=== PATIENT | male | born 1945 | race Caucasian/White ===

== ENCOUNTER 2016-04-27 10:47 | Inpatient (IN) | payer OTHER, BC ==
[~2016-04-27] VITALS: Ht 188 cm; Wt 92.9 kg
[2016-04-27] VITALS (7 sets, daily range): BP systolic 97–123; BP diastolic 68–85
[~2016-04-27 10:47] MED LIST: ALEVE220 MG PO; BENAZEPRIL HCL10 MG PO; BENAZEPRIL HCL40 MG PO; BUMETANIDE1 MG PO; BUMEX1 MG PO; CLONAZEPAM0.5 MG PO; COLACE100 MG PO; COMPAZINE10 MG PO; DAILY VALUE1 EACH PO; DIAZEPAM5 MG PO; DILAUDID2 MG PO; DULCOLAX5 MG PO; DURAGESIC25 MCG TD; DURAGESIC50 MCG TD; ELIQUIS5 MG PO; FLAX SEED OIL1 EACH PO; FLAXSEED OIL1000 M4 PO; LO-DOSE ASPIRIN81 M1 PO; LORAZEPAM0.5 MG PO; LOVENOX100 MG/1 M SC; METFORMIN HCL500 M1 PO; METOPROLOL SUCC50 MG PO; NORCO 5/3251 TABLET PO; OXAYDO5 MG PO; OXYCODONE HCL10 MG PO; PROCHLORPERAZIN10 MG PO; ROXICODONE5 MG PO; XARELTO15 MG PO; ZANAFLEX2 MG PO; ZANTAC150 MG PO; [UNRECOGNIZED DRUG - OTHER] PO
[2016-04-27 12:02] LABS: HEMATOCRIT 38.7 % (38.0-50.0); MCH 26.4 PG (29.0-34.0); MCHC 31.8 G/DL (30.0-36.0); MEAN PLAT.VOLUME 9.4 uM^3 (9.0-12.4); PLATELET COUNT 685 K/uL (156-360); RBC DIS.WIDTH-CV 16.6 % (11.8-14.6); RBC DIS.WIDTH-SD 49.3 % (39-53); RED BLOOD COUNT 4.66 M/uL (4.00-5.50); WHITE BLOOD COUNT 25.3 K/uL (4.1-10.2)
[2016-04-27 12:20] LABS: TROP-I INTERPRETATION NEGATIVE
[2016-04-27] MEDS ORDERED: DEXAMETHASONE4 MG PO (12:53)
[2016-04-27] MEDS ORDERED: KADIAN30 MG PO (12:53)
[2016-04-27 13:06] LABS: CHLORIDE 88 mEq/L (99-109); SODIUM 126 mEq/L (136-147)
[2016-04-27 13:09] LABS: ANION GAP 23 MEQ/L (2-14)
[2016-04-27 13:12] LABS: GFR ESTIMATE (CALCULATED) 53 mL/min/
[2016-04-27 13:13] LABS: UREA NITROGEN (BUN) 32 mg/dL (9-23)
[2016-04-27 13:14] LABS: GLUCOSE 792 mg/dL (70-99)
[2016-04-27 13:42] LABS: CARBON DIOXIDE (BICARBONATE) 22.5 MEQ/L (20-31)
[2016-04-27 14:14] LABS: ADD MIUA? NO; BILIRUBIN NEGATIVE; BLOOD NEGATIVE; COLOR YELLOW ((YELLOW)); GLUCOSE (STRIP) >=1000; KETONES 40; LEUKOCYTES NEGATIVE; NITRITE NEGATIVE; PH, URINE 5.5 (5-8); PROTEIN (STRIP) NEGATIVE; SPECIFIC GRAVITY 1.034 (1.000-1.030); UCUL ADDED? NO; UROBILINOGEN 0.2 MG/DL (0.2-1.0)
[2016-04-27] MEDS ORDERED: ZANAFLEX2 MG PO (15:18)
[2016-04-27] MEDS ORDERED: ZOFRAN4 MG PO (15:19)
[2016-04-27 16:14] LABS: Estimated Average Glucose 280 mg/dL (70-123); HEMOGLOBIN A1c (GLYCOHEMOGLOB) 11.4 % HGB (Below 5.7)
[2016-04-27 18:23] LABS: METH RESISTANT S AUREUS PCR NEGATIVE (NEGATIVE)
[2016-04-27 18:24] LABS: PROBE CHECK PASS; SPECIMEN PROCESSING CONTROL PASS
[2016-04-27 20:09] LABS: POINT-OF-CARE METER ID UU13113748
[2016-04-27 20:14] LABS: ANION GAP 11 MEQ/L (2-14); CHLORIDE 95 MEQ/L (99-109); MAGNESIUM 1.8 mg/dl (1.3-2.7); SAMPLE HEMOLYSIS CHECK 0; SAMPLE ICTERIC CHECK 0; SAMPLE LIPEMIA CHECK 0; SODIUM 130 MEQ/L (136-147)
[2016-04-27 20:22] LABS: UREA NITROGEN (BUN) 27 mg/dL (9-23)
[2016-04-27 20:24] LABS: GFR ESTIMATE (CALCULATED) > 59 mL/min/; POTASSIUM 3.7 MEQ/L (3.7-5.4)
[2016-04-27 20:32] LABS: GLUCOSE 393 mg/dL (70-99)
[2016-04-27 21:19] LABS: POINT-OF-CARE METER ID UU13113748
[2016-04-27 22:38] LABS: POINT-OF-CARE METER ID UU13113748
[2016-04-27 23:49] LABS: POINT-OF-CARE METER ID UU13113748
[2016-04-28] VITALS (16 sets, daily range): BP systolic 98–127; BP diastolic 60–77
[2016-04-28 00:44] LABS: POINT-OF-CARE METER ID UU13113748
[2016-04-28 00:52] LABS: SODIUM 132 mEq/L (136-147)
[2016-04-28 00:53] LABS: MAGNESIUM 1.6 mg/dL (1.3-2.7)
[2016-04-28 00:54] LABS: GLUCOSE 204 mg/dL (70-99)
[2016-04-28 00:56] LABS: ANION GAP 9 MEQ/L (2-14); CHLORIDE 101 mEq/L (99-109); POTASSIUM 4.5 mEq/L (3.7-5.4)
[2016-04-28 00:58] LABS: GFR ESTIMATE (CALCULATED) > 59 mL/min/
[2016-04-28 00:59] LABS: UREA NITROGEN (BUN) 23 mg/dL (9-23)
[2016-04-28 01:56] LABS: POINT-OF-CARE METER ID UU14174217
[2016-04-28 04:26] LABS: CHLORIDE 102 mEq/L (99-109); POTASSIUM 4.2 mEq/L (3.7-5.4); SODIUM 134 mEq/L (136-147)
[2016-04-28 04:27] LABS: MAGNESIUM 1.7 mg/dL (1.3-2.7)
[2016-04-28 04:28] LABS: GLUCOSE 131 mg/dL (70-99)
[2016-04-28 04:30] LABS: ANION GAP 8 MEQ/L (2-14)
[2016-04-28 04:32] LABS: GFR ESTIMATE (CALCULATED) > 59 mL/min/
[2016-04-28 04:33] LABS: UREA NITROGEN (BUN) 23 mg/dL (9-23)
[2016-04-28 08:20] LABS: POINT-OF-CARE METER ID UU13113748
[2016-04-29] VITALS (12 sets, daily range): BP systolic 96–134; BP diastolic 55–82
[2016-04-29 08:33] LABS: MCH 26.1 PG (29.0-34.0); MCHC 31.7 G/DL (30.0-36.0); MCV 82.2 FL (86-99); RBC DIS.WIDTH-CV 16.9 % (11.8-14.6); RBC DIS.WIDTH-SD 50.5 % (39-53); RED BLOOD COUNT 4.26 M/uL (4.00-5.50); WHITE BLOOD COUNT 20.3 K/uL (4.1-10.2)
[2016-04-29 08:44] LABS: EOSINOPHIL (%) 2.3 % (0-5); EOSINOPHIL COUNT 0.5 K/uL (0-0.3); IMMATURE GRANULOCYTE (%) 0.7 % (0.0-0.7); IMMATURE GRANULOCYTE COUNT 0.1 K/uL; LYMPHOCYTE COUNT 1.5 K/uL (1.0-2.8); MONOCYTE (%) 8.5 % (3-12); MONOCYTE COUNT 1.7 K/uL (0-0.8); NEUTROPHIL COUNT 16.5 K/uL (1.8-6.4)
[2016-04-29 08:57] LABS: ANION GAP 7 MEQ/L (2-14); CHLORIDE 97 MEQ/L (99-109); GFR ESTIMATE (CALCULATED) > 59 mL/min/; MAGNESIUM 1.7 mg/dl (1.3-2.7); POTASSIUM 4.1 MEQ/L (3.7-5.4); SAMPLE HEMOLYSIS CHECK 0; SAMPLE ICTERIC CHECK 0; SAMPLE LIPEMIA CHECK 0; SODIUM 131 MEQ/L (136-147); UREA NITROGEN (BUN) 27 mg/dL (9-23)
[2016-04-29 08:58] LABS: GLUCOSE 282 mg/dL (70-99)
[2016-04-29 09:16] LABS: HEMATOLOGY COMMENT 1 SMEAR COMPATIBLE; USER ID BLP
[2016-04-29 11:58] LABS: POINT-OF-CARE METER ID UU13113803
[2016-04-29 22:27] LABS: POINT-OF-CARE METER ID UU14174217
[2016-04-30] VITALS (8 sets, daily range): BP systolic 107–119; BP diastolic 66–80
[2016-04-30 12:59] LABS: POINT-OF-CARE METER ID UU13113731
[2016-04-30] MEDS ORDERED: METFORMIN HCL1000 MG PO (13:14)
[2016-04-30] MEDS ORDERED: NOVOLOG PE100 UNITS/ SC ×3 (13:14→17:34)
[2016-04-30] MEDS ORDERED: LEVEMIR100 UNIT/2 SC ×2 (13:17→13:18)
[2016-04-30 15:20] LABS: POINT-OF-CARE METER ID UU14174217; POINT-OF-CARE USER ID ENVSME70
[2016-04-30 16:04] LABS: POINT-OF-CARE METER ID UU14174217
[2016-04-30 17:18] LABS: POINT-OF-CARE METER ID UU13113748
== END 2016-04-30 18:35 | disposition home or self-care (01) | DRG 638 ==
LOC: EME 10:47 → EDOF 15:04 → 4WEST 15:04
PROVIDERS: Emergency Medicine; Hospitalist; Internal Medicine; Internal Medicine Critical Care Medicine
DX: E09.10 Drug or chemical induced diabetes mellitus with ketoacidosis without coma (principal); N17.9 Acute kidney failure, unspecified; C34.90 Malignant neoplasm of unspecified part of unspecified bronchus or lung; C79.51 Secondary malignant neoplasm of bone; I82.402 Acute embolism and thrombosis of unspecified deep veins of left lower extremity; I10 Essential (primary) hypertension; G89.29 Other chronic pain; T38.0X5A Adverse effect of glucocorticoids and synthetic analogues, initial encounter
CPT/HCPCS: 71020; 77336; 77412; 80048; 80048 91; 81003; 82010 90; 82803; 82948; 83036; 83735; 84100; 84484; 84999; 85025; 85027; 87641; 93005; 99281; 99285; J1170; J1815; J2765; J3480; J7030; J7050; J7120; J8540; S0028

== ENCOUNTER 2016-06-16 12:13 | Emergency (ER) | payer OTHER, BC ==
[~2016-06-16] VITALS: Ht 188 cm; Wt 102.4 kg
[~2016-06-16 12:13] MED LIST changes: +DEXAMETHASONE4 MG PO; +KADIAN30 MG PO; +LEVEMIR100 UNIT/2 SC; +METFORMIN HCL1000 MG PO; +NOVOLOG PE100 UNITS/ SC; +ZOFRAN4 MG PO
[2016-06-16 13:29] LABS: MEAN PLAT.VOLUME 8.1 uM^3 (9.0-12.4); PLATELET COUNT 625 K/uL (156-360)
[2016-06-16 13:43] LABS: CHLORIDE 103 mEq/L (99-109); POTASSIUM 4.2 mEq/L (3.7-5.4); SODIUM 136 mEq/L (136-147)
[2016-06-16 13:45] LABS: GLUCOSE 130 mg/dL (70-99)
[2016-06-16 13:46] LABS: ANION GAP 11 MEQ/L (2-14)
[2016-06-16 13:47] LABS: TOTAL BILIRUBIN 0.3 mg/dL (0.0-1.0)
[2016-06-16 13:48] LABS: ALKALINE PHOSPHATASE 83 IU/L (3-129)
[2016-06-16 13:49] LABS: GFR ESTIMATE (CALCULATED) > 59 mL/min/
[2016-06-16 13:50] LABS: UREA NITROGEN (BUN) 19 mg/dL (9-23)
[2016-06-16 13:50] LABS: TROP-I INTERPRETATION NEGATIVE; TROPONIN-I < 0.01 ng/mL (0.0-0.30)
[2016-06-16 13:52] LABS: LIPASE 14 U/L (1.0-51.0)
[2016-06-16 13:54] LABS: HEMATOCRIT 23.7 % (38.0-50.0); MCH 25.6 PG (29.0-34.0); MCHC 30.8 G/DL (30.0-36.0); MCV 83.2 FL (86-99); RBC DIS.WIDTH-CV 17.7 % (11.8-14.6); RBC DIS.WIDTH-SD 51.9 % (39-53); RED BLOOD COUNT 2.85 M/uL (4.00-5.50)
[2016-06-16 13:58] LABS: WHITE BLOOD COUNT 31.5 K/uL (4.1-10.2)
[2016-06-16] MEDS ORDERED: MORPHINE SULFAT15 M1 PO (14:14)
[2016-06-16] MEDS ORDERED: AMARYL2 MG PO (14:15)
[2016-06-16] MEDS ORDERED: HYOSCYAMINE0.125 M2 PO (14:16)
[2016-06-16] MEDS ORDERED: OXYCODONE HCL10 MG PO (14:17)
[2016-06-16] MEDS ORDERED: MAG-AL LIQUID30 ML PO (14:18)
[2016-06-16 14:48] LABS: ABS NEUTROPHIL COUNT 24.29; ANISOCYTOSIS 1+; BAND NEUTROPHILS 27.5 % (0-8.0); EOSINOPHIL ABS CT 4.73; HYPOCHROMASIA 1+; OVALOCYTES OCC; PLAT.SUFFICIENCY INCREASED; POLYCHROMASIA OCC; SEG.NEUTROPHILS 49.5 % (46.0-76.0); USER ID MCB
[2016-06-16 14:51] LABS: DELETE MACHINE DIFF? YES
[2016-06-16 18:18] VITALS: BP 84/65
[2016-06-16] MEDS ORDERED: CARDIZEM CD120 M1 PO (18:22)
== END 2016-06-16 19:00 | disposition home or self-care (01) ==
LOC: EME 12:13
PROVIDERS: Emergency Medicine
DX: I48.91 Unspecified atrial fibrillation (principal); I95.9 Hypotension, unspecified; R10.9 Unspecified abdominal pain; C34.90 Malignant neoplasm of unspecified part of unspecified bronchus or lung; D73.9 Disease of spleen, unspecified; E27.8 Other specified disorders of adrenal gland; D72.829 Elevated white blood cell count, unspecified; D64.9 Anemia, unspecified; E11.9 Type 2 diabetes mellitus without complications; I10 Essential (primary) hypertension; Z85.038 Personal history of other malignant neoplasm of large intestine; Z87.891 Personal history of nicotine dependence
CPT/HCPCS: 71010; 71275; 74177; 80053; 81003; 83605; 83690; 84484; 85025; 93005; 99281; 99285; J1200; J2270; J7030

== ENCOUNTER 2016-06-21 19:26 | Emergency (ER) | payer OTHER, BC ==
[~2016-06-21] VITALS: Ht 188 cm; Wt 115.0 kg
[~2016-06-21 19:26] MED LIST changes: +AMARYL2 MG PO; +CARDIZEM CD120 M1 PO; +HYOSCYAMINE0.125 M2 PO; +MAG-AL LIQUID30 ML PO; +MORPHINE SULFAT15 M1 PO
[2016-06-21 20:01] LABS: BASOPHIL COUNT 0.1 K/uL (0-0.1); EOSINOPHIL (%) 8.9 % (0-5); EOSINOPHIL COUNT 2.8 K/uL (0-0.3); IMMATURE GRANULOCYTE (%) 0.9 % (0.0-0.7); IMMATURE GRANULOCYTE COUNT 0.3 K/uL; LYMPHOCYTE COUNT 1.1 K/uL (1.0-2.8); MEAN PLAT.VOLUME 7.9 uM^3 (9.0-12.4); MONOCYTE (%) 7.6 % (3-12); MONOCYTE COUNT 2.4 K/uL (0-0.8); NEUTROPHIL (%) 78.8 % (45-76); NEUTROPHIL COUNT 24.7 K/uL (1.8-6.4); PLATELET COUNT 691 K/uL (156-360)
[2016-06-21 20:13] LABS: CHLORIDE 103 mEq/L (99-109); POTASSIUM 3.9 mEq/L (3.7-5.4); SODIUM 137 mEq/L (136-147)
[2016-06-21 20:14] LABS: MAGNESIUM 1.5 mg/dL (1.3-2.7)
[2016-06-21 20:16] LABS: GLUCOSE 132 mg/dL (70-99)
[2016-06-21 20:17] LABS: ANION GAP 9 MEQ/L (2-14)
[2016-06-21 20:19] LABS: ALKALINE PHOSPHATASE 99 IU/L (3-129); GFR ESTIMATE (CALCULATED) > 59 mL/min/
[2016-06-21 20:20] LABS: UREA NITROGEN (BUN) 16 mg/dL (9-23)
[2016-06-21 20:22] LABS: HEMATOCRIT 27.4 % (38.0-50.0); INSTRUMENT ABS NEUTROPHIL CT 24.7 K/uL; MCH 25.1 PG (29.0-34.0); MCHC 30.7 G/DL (30.0-36.0); RBC DIS.WIDTH-CV 18.4 % (11.8-14.6); RBC DIS.WIDTH-SD 54.6 % (39-53); RED BLOOD COUNT 3.34 M/uL (4.00-5.50); WHITE BLOOD COUNT 31.3 K/uL (4.1-10.2)
[2016-06-21 20:25] LABS: TOTAL BILIRUBIN 0.4 mg/dL (0.0-1.0)
[2016-06-21 20:29] LABS: TROP-I INTERPRETATION NEGATIVE; TROPONIN-I < 0.01 ng/mL (0.0-0.30)
[2016-06-21] MEDS ORDERED: MORPHINE CON20 MG/M1 PO (21:59)
[2016-06-21] MEDS ORDERED: DILAUDID2 MG PO (22:02)
[2016-06-21] MEDS ORDERED: KADIAN30 MG PO (22:04)
[2016-06-21] MEDS ORDERED: ATIVAN INTE2 MG/1 ML PO (22:06)
[2016-06-21 22:37] LABS: POINT-OF-CARE METER ID UU14100415
[2016-06-22 00:22] VITALS: BP 115/81
== END 2016-06-22 00:22 | disposition home or self-care (01) ==
LOC: EME 19:26 → EDOF 22:05
PROVIDERS: Emergency Medicine; Internal Medicine
DX: C34.90 Malignant neoplasm of unspecified part of unspecified bronchus or lung (principal); C79.89 Secondary malignant neoplasm of other specified sites; R06.00 Dyspnea, unspecified; R00.0 Tachycardia, unspecified; G89.29 Other chronic pain; I10 Essential (primary) hypertension; E11.9 Type 2 diabetes mellitus without complications; Z79.891 Long term (current) use of opiate analgesic; Z79.01 Long term (current) use of anticoagulants; Z87.891 Personal history of nicotine dependence
CPT/HCPCS: 71010; 80053; 81003; 82948; 83605; 83735; 83880; 84484; 85025; 87040; 93005; 99281; 99285; J2543; J7040